=== PATIENT | male | born 1975 | race Caucasian/White ===

== ENCOUNTER 2018-06-25 16:27 | Outpatient (REF) | payer OTHER, SELFPAY ==
[2018-06-25 22:29] LABS: Mean Corp. HGB Concentration 34.2 g/dL (32.0-36.0); Mean Corpuscular Hemoglobin 29.5 pg (27.0-33.0); Mean Corpuscular Volume 86.4 fL (80-95); Mean Platelet Volume 11.1 fL (8.0-11.0); Platelet Count 170 x1000/uL (130-400); White Blood Cell Count 6.86 k/cumm (4.4-10.8)
[2018-06-25 22:44] LABS: Iron 57 ug/dL (50-175); Total Iron Binding Capacity 241 ug/dL (250-450); Transferrin Sat 24 % (20-55)
[2018-06-25 22:55] LABS: Ferritin 207 ng/mL (8-388); TSH (W/Ref FT4) 1.75 uIU/mL (0.358-3.74)
== END 2018-06-25 16:47 ==
LOC: NCHCN 16:27
PROVIDERS: PCP Nurse Practitioner Family; Visit Provider Nurse Practitioner Family
DX: R53.83 Other fatigue (principal); R06.83 Snoring; M79.674 Pain in right toe(s)
CPT/HCPCS: 85027; 82728; 83540; 83550; 84443

== ENCOUNTER 2018-07-14 07:07 | Emergency (ER) | payer SELFPAY ==
--- NOTE | 2018-07-14 07:10 | W.ED.GENAD ---
Discharge Plan Disposition Patient Disposition: HOME Condition: Stable Discharge Details Chief Complaint: Chest/Rib Clinical Impression: Shingles, Animal bite Primary Care Provider: Anel Campos ED Provider: Dav Penaloza Home Meds and New Rx's Prescriptions: New acyclovir 800 mg tablet 800 mg PO Q4H 7 Days Qty: 42 RF: 0 lidocaine 5 % adhesive patch,medicated 1 patch TP DAILY Qty: 15 RF: 0 Continued metformin 500 MG tablet 850 mg PO BID RF: 0 losartan 25 MG tablet 25 mg PO DAILY RF: 0 aspirin [Aspir-81] 81 MG tablet,delayed release (DR/EC) 81 mg PO DAILY RF: 0 simvastatin 10 MG tablet 10 mg PO HS RF: 0 Discharge Instructions Instructions: Shingles (ED) Additional Instructions: you are being treated for shingles you can take 1000mg tylenol and 600mg ibuprofen every 6 hours for pain as needed you should be contacted with a time to go to the infusion room on 07/17, 07/21, 07/28 for additional rabies vaccines if you have severe worsening pain or difficulty breathing return to the emergency department Medical Decision Making 43 yo male states last week he wsa bit on the hands by a weasel. Has no pain, swelling or evidence of bite on exam. Came in today because for 2 days or so has had pain in left chest and a rash. The rash seems to fit with shingles, is in t5 dermatome, maculopapular with some vescules, doesn't cross midline. HAs no pain elsewhere and pain is localized to this area. Do not feel workup for acs, pe, dissection indicated since his pain is localized to the shingles area. Will d/c home. Will give rabies immunoglobulin and start rabies vaccnie as well for the weasel bite, return precautions given. Has no clinical findings on hx or exam to suggest clinical rabies Differential Diagnosis shingles, rabies prophylaxis HPI General Mode of arrival: ambulatory. Date/Time Provider Initiated Documentation: 07/14/18 07:10. Limitations to Documentation: no limitations. Information obtained by: patient. History of Present Illness 43 year old M presents to the emergency department with the chief complaint of left sided chest rash, described as moderate, Quality is described as burning, and is localized to the chest. Patient reports no radiation. Patient started experiencing this day(s) (2) and it has been constant. No relieving factors improve symptom(s), No exacerbating factors reported . Patient notes no other symptoms.. Patient did receive the following treatments prior to arrival, none Related Data Home Medications Medication Instructions Recorded Confirmed aspirin [Aspir-81] 81 mg PO DAILY 07/07/16 07/14/18 losartan 25 mg PO DAILY 07/07/16 07/14/18 metformin 850 mg PO BID 07/07/16 07/14/18 simvastatin 10 mg PO HS 07/07/16 07/14/18 acyclovir 800 mg PO Q4H 7 Days #42 tab 07/14/18 lidocaine 1 patch TP DAILY #15 each 07/14/18 Previous Rx's Medication Instructions Recorded acyclovir 800 mg PO Q4H 7 Days #42 tab 07/14/18 lidocaine 1 patch TP DAILY #15 each 07/14/18 Allergies Allergy/AdvReac Type Severity Reaction Status Date / Time No Known Allergies Allergy Unverified 07/14/18 07:17 Review of Systems Review of Systems All systems reviewed & are unremarkable except as noted in HPI and below Constitutional Denies chills, Denies fever(s) and Denies weakness ENT Denies change in voice Cardiovascular Denies dyspnea Respiratory Denies dyspnea Gastrointestinal Denies abdominal pain, Denies nausea and Denies vomiting Genitourinary Denies dysuria Musculoskeletal Denies joint swelling Neurologic Denies weakness Endocrine Denies heat intolerance Allergic/Immunologic Denies urticaria [facility] Social History Smoking/Tobacco Use Status: Never Exam Const General: no acute distress Orientation: alert HENMT Head: normal to inspection Ears: external ears normal General nose exam: external nose normal Mouth: moist mucous membranes Eyes General: appearance normal, both eyes and all related structures Neck Neck: normal visual inspection Resp Effort & Inspection: normal respiratory effort and able to speak in complete sentences Cardio Rate: regular rate Skin General skin exam: elasticity normal Neuro General: alert and oriented x3 Extrem General: normal to inspection Psych Mental Status: mental status grossly normal
[2018-07-14 07:12] VITALS: BP 145/82; PULSE 91; RESP 12; TEMP 37; O2SAT 98
--- NOTE | 2018-07-14 07:29 | ED.GENADUL_ITS ---
Discharge Plan Disposition Patient Disposition: HOME Condition: Stable Discharge Details Chief Complaint: Chest/Rib Clinical Impression: Shingles, Animal bite Primary Care Provider: Anel Campos ED Provider: Dav Penaloza Home Meds and New Rx's Prescriptions: New acyclovir 800 mg tablet 800 mg PO Q4H 7 Days Qty: 42 RF: 0 lidocaine 5 % adhesive patch,medicated 1 patch TP DAILY Qty: 15 RF: 0 Continued metformin 500 MG tablet 850 mg PO BID RF: 0 losartan 25 MG tablet 25 mg PO DAILY RF: 0 aspirin [Aspir-81] 81 MG tablet,delayed release (DR/EC) 81 mg PO DAILY RF: 0 simvastatin 10 MG tablet 10 mg PO HS RF: 0 Discharge Instructions Instructions: Shingles (ED) Additional Instructions: you are being treated for shingles you can take 1000mg tylenol and 600mg ibuprofen every 6 hours for pain as needed you should be contacted with a time to go to the infusion room on 07/17, 07/21, 07/28 for additional rabies vaccines if you have severe worsening pain or difficulty breathing return to the emergency department Medical Decision Making 43 yo male states last week he wsa bit on the hands by a weasel. Has no pain, swelling or evidence of bite on exam. Came in today because for 2 days or so has had pain in left chest and a rash. The rash seems to fit with shingles, is in t5 dermatome, maculopapular with some vescules, doesn't cross midline. HAs no pain elsewhere and pain is localized to this area. Do not feel workup for acs, pe, dissection indicated since his pain is localized to the shingles area. Will d/c home. Will give rabies immunoglobulin and start rabies vaccnie as well for the weasel bite, return precautions given. Has no clinical findings on hx or exam to suggest clinical rabies Differential Diagnosis shingles, rabies prophylaxis HPI General Mode of arrival: ambulatory . Date/Time Provider Initiated Documentation: 07/14/18 07:10 . Limitations to Documentation: no limitations . Information obtained by: patient . History of Present Illness 43 year old M presents to the emergency department with the chief complaint of left sided chest rash, described as moderate, Quality is described as burning, and is localized to the chest. Patient reports no radiation. Patient started experiencing this day(s) (2) and it has been constant. No relieving factors improve symptom(s), No exacerbating factors reported . Patient notes no other symptoms.. Patient did receive the following treatments prior to arrival, none Related Data Home Medications Medication Instructions Recorded Confirmed aspirin [Aspir-81] 81 mg PO DAILY 07/07/16 07/14/18 losartan 25 mg PO DAILY 07/07/16 07/14/18 metformin 850 mg PO BID 07/07/16 07/14/18 simvastatin 10 mg PO HS 07/07/16 07/14/18 acyclovir 800 mg PO Q4H 7 Days #42 tab 07/14/18 lidocaine 1 patch TP DAILY #15 each 07/14/18 Previous Rx's Medication Instructions Recorded acyclovir 800 mg PO Q4H 7 Days #42 tab 07/14/18 lidocaine 1 patch TP DAILY #15 each 07/14/18 Allergies Allergy/AdvReac Type Severity Reaction Status Date / Time No Known Allergies Allergy Unverified 07/14/18 07:17 Review of Systems Review of Systems All systems reviewed & are unremarkable except as noted in HPI and below Constitutional Denies chills, Denies fever(s) and Denies weakness ENT Denies change in voice Cardiovascular Denies dyspnea Respiratory Denies dyspnea Gastrointestinal Denies abdominal pain, Denies nausea and Denies vomiting Genitourinary Denies dysuria Musculoskeletal Denies joint swelling Neurologic Denies weakness Endocrine Denies heat intolerance Allergic/Immunologic Denies urticaria [facility] Social History Smoking/Tobacco Use Status: Never Exam Const General: no acute distress Orientation: alert HENMT Head: normal to inspection Ears: external ears normal General nose exam: external nose normal Mouth: moist mucous membranes Eyes General: appearance normal, both eyes and all related structures Neck Neck: normal visual inspection Resp Effort & Inspection: normal respiratory effort and able to speak in complete sentences Cardio Rate: regular rate Skin General skin exam: elasticity normal Neuro General: alert and oriented x3 Extrem General: normal to inspection Psych Mental Status: mental status grossly normal
[2018-07-14] MEDS: Rabies Immune Globulin 300 UNIT/ML VIAL 1800 UNIT IM (07:45)
--- NOTE | 2018-07-14 07:50 | NUR.NOTE ---
out-patient order sent to infusion room for future rabies vaccine. Nursing Note:
--- NOTE | 2018-07-14 08:09 | NUR.NOTE ---
animal bite reported to Glory Bolanos [facility] Officer. [facility] [phone].Nursing Note:
== END 2018-07-14 08:05 | disposition home or self-care (01) ==
PROVIDERS: Emergency Provider Emergency Medicine; PCP Nurse Practitioner Family
DX: B02.9 Zoster without complications (principal); S61.451A Open bite of right hand, initial encounter; S61.452A Open bite of left hand, initial encounter; W53.81XA Bitten by other rodent, initial encounter; E11.9 Type 2 diabetes mellitus without complications; Z79.84 Long term (current) use of oral hypoglycemic drugs
CPT/HCPCS: 90471; 96372; 99284; 90675

== ENCOUNTER 2018-07-28 00:30 | Outpatient (RCR) | payer SELFPAY | END 2018-08-09 23:59 | disposition home or self-care (01) | LOC: INF 00:30 | PROVIDERS: PCP Nurse Practitioner Family; Visit Provider Internal Medicine | DX: Z20.3 Contact with and (suspected) exposure to rabies (principal) | CPT/HCPCS: 96372; 90675 ==

== ENCOUNTER 2018-07-30 17:08 | Outpatient (REF) | payer SELFPAY ==
[2018-07-30 22:11] LABS: HCT 38.8 % (40.0-50.0); Mean Corp. HGB Concentration 33.5 g/dL (32.0-36.0); Mean Corpuscular Hemoglobin 29.5 pg (27.0-33.0); Mean Platelet Volume 11.4 fL (8.0-11.0); Platelet Count 181 x1000/uL (130-400); RBC 4.41 m/cumm (4.50-6.00); RBC Distribution Width 13.7 % (11.8-14.1); White Blood Cell Count 7.36 k/cumm (4.4-10.8)
== END 2018-07-30 17:28 ==
LOC: NCHCN 17:08
PROVIDERS: PCP Nurse Practitioner Family; Visit Provider Nurse Practitioner Family
DX: D64.9 Anemia, unspecified (principal); R53.83 Other fatigue; E78.5 Hyperlipidemia, unspecified; E11.9 Type 2 diabetes mellitus without complications; R06.83 Snoring; M54.5 Low back pain
CPT/HCPCS: 85027

== ENCOUNTER 2018-11-05 17:41 | Outpatient (REF) | payer SELFPAY ==
[2018-11-05 21:08] LABS: HGB 12.5 g/dL (13.5-17.5); Mean Corp. HGB Concentration 33.8 g/dL (32.0-36.0); Mean Corpuscular Hemoglobin 28.9 pg (27.0-33.0); Mean Corpuscular Volume 85.6 fL (80-95); Mean Platelet Volume 11.3 fL (8.0-11.0); Platelet Count 160 x1000/uL (130-400); RBC 4.32 m/cumm (4.50-6.00); RBC Distribution Width 12.9 % (11.8-14.1); White Blood Cell Count 5.89 k/cumm (4.4-10.8)
[2018-11-05 21:19] LABS: ALT 53 U/L (12-78); AST 30 U/L (15-37); Albumin 4.1 g/dL (3.4-5.0); Alkaline Phosphatase 67 U/L (46-116); Anion Gap 10.5 mmol/L (3-11); BUN 14 mg/dL (7-18); Bilirubin, Total 0.4 mg/dL (0.2-1.0); CO2 27.5 mmol/L (21.0-32.0); CREATININE 0.81 mg/dL (0.70-1.30); Calcium 8.4 mg/dL (8.5-10.1); Chloride 101 mmol/L (98-107); Glucose 120 mg/dL (70-100); Potassium 3.6 mmol/L (3.5-5.1); Sodium 139 mmol/L (136-145); Total Protein 6.8 g/dL (6.4-8.2)
== END 2018-11-05 18:01 ==
LOC: NCHCN 17:41
PROVIDERS: PCP Nurse Practitioner Family; Visit Provider Nurse Practitioner Family
DX: D64.9 Anemia, unspecified; R53.83 Other fatigue; M54.5 Low back pain; R06.83 Snoring; E78.5 Hyperlipidemia, unspecified; E11.9 Type 2 diabetes mellitus without complications; R07.9 Chest pain, unspecified
CPT/HCPCS: 80053; 85027

== ENCOUNTER 2019-04-25 06:41 | Emergency (ER) | payer SELFPAY ==
[2019-04-25 06:44] VITALS: BP 143/86; PULSE 102; RESP 16; TEMP 36.8; O2SAT 97
[2019-04-25 06:48] VITALS: RESP 16
--- NOTE | 2019-04-25 07:06 | ED.GENADUL_ITS ---
Discharge Plan Disposition Patient Disposition: HOME Condition: Good Discharge Details Chief Complaint: Vascular Clinical Impression: Right wrist pain Primary Care Provider: Anel Campos ED Provider: Paramjit Palacios Meds and New Rx's Prescriptions: New ibuprofen 600 mg tablet 600 mg PO TID Qty: 12 RF: 0 Continued metformin 500 MG tablet 1,000 mg PO BID RF: 0 losartan 25 MG tablet 25 mg PO DAILY RF: 0 aspirin [Aspir-81] 81 MG tablet,delayed release (DR/EC) 81 mg PO DAILY RF: 0 simvastatin 10 MG tablet 10 mg PO HS RF: 0 Discharge Instructions Additional Instructions: Wear splint. Ibuprofen as directed. Ice on and off. Follow-up with primary care next week for reevaluation. Return to emergency department for fever, increased pain/swelling, redness. Stand Alone Forms: Work Release Referrals: Anel Campos [Primary Care Provider] - Medical Decision Making Patient here with pain in the ulnar aspect of the right wrist. No evidence of joint effusion, erythema. Essentially normal range of motion. Doubt infection. No trauma so no reason for fracture or dislocation. No involvement of carpal tunnel distribution. Appears to be more ulnar nerve related. Does not have pain in the elbow. He is neurovascularly intact. We will place him in a universal wrist splint and start short-term ibuprofen. Follow-up with primary care next week for reevaluation. Return to ED for fever, swelling, redness, other concerns or problems. HPI General Mode of arrival: ambulatory . Date/Time Provider Initiated Documentation: 04/25/19 07:04 . Limitations to Documentation: no limitations . Information obtained by: patient . HPI Narrative: Patient presents to ED with right ulnar wrist pain. He has had a little discomfort over the last couple of days. This morning significantly worse with pain down into the little finger. There is no trauma. He is right-hand dominant. 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 He has not taken anything for the pain. He denies numbness or weakness in the hand. He has no elbow discomfort. Related Data Home Medications Medication Instructions Recorded Confirmed aspirin [Aspir-81] 81 mg PO DAILY 07/07/16 04/25/19 losartan 25 mg PO DAILY 07/07/16 04/25/19 metformin 1,000 mg PO BID 07/07/16 04/25/19 simvastatin 10 mg PO HS 07/07/16 04/25/19 ibuprofen 600 mg PO TID #12 tab 04/25/19 Previous Rx's Medication Instructions Recorded ibuprofen 600 mg PO TID #12 tab 04/25/19 Allergies Allergy/AdvReac Type Severity Reaction Status Date / Time No Known Allergies Allergy Unverified 04/25/19 06:47 General Stated Complaint: Vascular POLLY: 4 Review of Systems Constitutional Constitutional: Denies weakness Musculoskeletal Musculoskeletal: Denies deformity, Denies joint swelling, Denies limited range of motion, Denies numbness and Denies tingling Integumentary/Breasts Skin/Breast: Denies erythema and Denies rash Neurologic Neurologic: Denies numbness, Denies tingling, Denies paresthesias and Denies weakness [facility], [facility] Medical History Diabetes mellitus (Chronic) HTN (hypertension) (Chronic) Hypercholesterolemia (Chronic) Social History Smoking/Tobacco Use Status: Never Alcohol Intake: never Drug use: Never Substance use type: does not use Do you feel safe at home: Yes Do you feel safe in your relationship?: Yes Exam Const General: cooperative, comfortable and no acute distress Orientation: alert and oriented x3 Skin General skin exam: no erythema Rashes: no rashes Extrem Other: Right wrist without swelling or redness. Essentially normal range of motion both flexion and extension as well as ulnar and radial deviation. Mild tenderness dorsal ulnar aspect. Good strength and sensation in the hand. No tenderness over the ulnar nerve in the elbow. Normal pulses. Course Vital Signs Vital signs: Vital Signs Temperature 98.2 F 04/25/19 06:44 Pulse 102 H 04/25/19 06:44 Respiratory Rate 16 04/25/19 06:44 Blood Pressure 143/86 H 04/25/19 06:44 Pulse Oximetry 97 04/25/19 06:44 Temperature 98.2 F 04/25/19 06:44 Temperature Source Skin 04/25/19 06:44 Pulse 102 H 04/25/19 06:44 Respiratory Rate 16 04/25/19 06:48 Respiratory Effort 04/25/19 06:48 Respiratory Depth Normal 04/25/19 06:48 Respiratory Pattern Normal 04/25/19 06:48 Blood Pressure 143/86 H 04/25/19 06:44 Blood Pressure Position Sitting 04/25/19 06:44 Pulse Oximetry 97 04/25/19 06:44 Oxygen Delivery Method Room Air 04/25/19 06:44 Oxygen Flow Rate 0 04/25/19 06:44 Pain Level 10 04/25/19 06:44 Comment 04/25/19 06:44
[2019-04-25] MEDS: Ibuprofen 600 MG TAB PO (07:14)
== END 2019-04-25 07:27 | disposition home or self-care (01) ==
PROVIDERS: Emergency Provider Emergency Medicine; PCP Nurse Practitioner Family
DX: M25.531 Pain in right wrist (principal)
CPT/HCPCS: 99282; L3908

== ENCOUNTER → 2020-06-19 16:08 | Outpatient (REF) | payer SELFPAY ==
[2020-06-19 20:57] LABS: Abs Immature Grans 0.07 10^3/uL (0.0-0.06); Absolute Basophil Count 0.03 10^3/uL (0.0-0.2); Absolute Eosinophil Count 0.05 10^3/uL (0.0-0.7); Absolute Lymphocyte Count 2.67 10^3/uL (1.2-3.4); Absolute Monocyte Count 0.37 10^3/uL (0.1-0.8); Absolute Neutrophil Count 4.43 10^3/uL (1.2-6.7); Basophils % 0.4; Eosinophils % 0.7; HCT 43.8 % (40.0-50.0); HGB 14.6 g/dL (13.5-17.5); Immature Grans % 0.9; MCH 28.7 pg (27.0-33.0); MCHC 33.3 % (32.0-36.0); MCV 86.2 fL (80-95); MPV 11.2 fL (8.0-11.0); Monocytes % 4.9; Neutrophils % 58.1; Nucleated RBC 0 %; Platelet Count 191 10^3/uL (130-400); RBC 5.08 10^6/uL (4.36-5.78); RDW 12.8 % (11.8-14.1); RDW-SD 39.8 fL; WBC 7.62 10^3/uL (4.4-10.8)
[2020-06-19 22:42] LABS: ALT 33 U/L (16-63); AST 17 U/L (15-37); Albumin 4.9 g/dL (3.4-5.0); Alkaline Phosphatase 75 U/L (46-116); Anion Gap 10.5 mmol/L (3-11); BUN 14 mg/dL (7-18); Bilirubin, Total 0.4 mg/dL (0.2-1.0); CO2 28.5 mmol/L (21.0-32.0); CREATININE 0.88 mg/dL (0.70-1.30); Calcium 9.1 mg/dL (8.5-10.1); Chloride 99 mmol/L (98-107); Folate 11.7 ng/mL (8.6-20.0); Glucose 162 mg/dL (74-106); Potassium 3.8 mmol/L (3.5-5.1); Sodium 138 mmol/L (136-145); Total Protein 7.7 g/dL (6.4-8.2); Vitamin B12 186 pg/mL (193-986)
[2020-06-19 23:36] LABS: Iron 68 ug/dL (65-175); Total Iron Binding Capacity 275 ug/dL (250-450); Transferrin Sat 25 % (20-55)
[2020-06-22 10:47] LABS: HIV-1/2 Ag & Ab Screen Negative (Negative)
[2020-06-22 11:11] LABS: Hepatitis C Ab w Rflx HCV PCR Negative (Negative)
== END ==
LOC: NCHCN 16:08
PROVIDERS: PCP Nurse Practitioner Family; Visit Provider Nurse Practitioner Family
DX: D64.9 Anemia, unspecified (principal); R07.89 Other chest pain; E78.5 Hyperlipidemia, unspecified; E11.9 Type 2 diabetes mellitus without complications; R53.83 Other fatigue; M54.5 Low back pain; Z11.4 Encounter for screening for human immunodeficiency virus [HIV]; Z11.59 Encounter for screening for other viral diseases
CPT/HCPCS: 80053; 86803; 87389; 82607; 82746; 83540; 83550; 85025

== ENCOUNTER 2020-06-23 20:59 | Outpatient (REF) | payer SELFPAY ==
[2020-06-25 16:37] LABS: COVID-19 RT-PCR UVMMC Result Negative (Negative)
== END 2020-06-23 21:19 ==
LOC: NCHCN 20:59
PROVIDERS: PCP Nurse Practitioner Family; Visit Provider Nurse Practitioner Family
DX: Z20.828 Contact with and (suspected) exposure to other viral communicable diseases (principal)
CPT/HCPCS: U0003

== ENCOUNTER 2020-07-08 13:46 | Emergency (ER) | payer OTHER, SELFPAY ==
[2020-07-08] VITALS (37 sets, daily range): BP systolic 114–147; BP diastolic 69–90; PULSE 70–92; RESP 12–28; TEMP 36.8–37; O2SAT 93–100
--- NOTE | 2020-07-08 13:45 | RT.EKG_ITS ---
APPROVED REPORT Exam: Resting ECG Patient Location: E HR:84 bpm ECG Measurements Heart Rate 84 AXIS WY 180 P 30 QRSd 96 QRS 41 QT 348 T 5 QTc 411 Conclusion Sinus rhythm...normal P axis, V-rate 60- 99 I have reviewed and interpreted ECG and agree with software generated interpretation.
--- NOTE | 2020-07-08 13:57 | ED.GENADUL_ITS ---
Discharge Plan Disposition Patient Disposition: HOME Condition: Improving Discharge Details Clinical Impression: Atypical chest pain, Chronic chest pain, Chest wall pain Primary Care Provider: Anel Campos ED Provider: Ida Garza Home Meds and New Rx's Prescriptions: Continued metformin 500 MG tablet 1,000 mg PO BID RF: 0 losartan 25 MG tablet 25 mg PO DAILY RF: 0 aspirin [Aspir-81] 81 MG tablet,delayed release (DR/EC) 81 mg PO DAILY RF: 0 simvastatin 10 MG tablet 10 mg PO HS RF: 0 glipizide 5 mg tablet extended release 24hr 5 mg PO DAILY RF: 0 cyanocobalamin (vitamin B-12) [Vitamin B-12] 1,000 mcg Tablet 1,000 mcg PO DAILY RF: 0 ibuprofen 600 mg tablet 600 mg PO TID Qty: 12 RF: 0 Discharge Instructions Instructions: Chronic Pain (ED), Chest Wall Pain (ED) Additional Instructions: Alternate tylenol and motrin as needed and directed for pain. You can use [id number] Lidoderm patches as needed and directed for pain. You will receive a call from the radiology department regarding scheduling for your outpatient stress test. Follow-up with your primary care doctor in 1 week. Return to the emergency department with any worsening or new concerning symptoms. Discharge Data Discharge Date/Time-TO BE ENTERED AT DEPARTURE: 07/08/20 18:10 Discharge Physician: Ida Garza Medical Decision Making 1400 -- 45yo M w/ a h/o diabetes, htn, hld presents with intermittent sharp substernal chest pain for the past week. No other associated symptoms. Started glipizide last week for elevated hemoglobin A1c per PCP. EKG notes a rate of 84, sinus with no acute ST ischemic findings. He appears somewhat anxious. He has mild substernal tenderness to palpation. He drove himself to the ED. Differential diagnosis includes anxiety, medication reaction, GI etiology, muscular. Considering chronic nature of pain without exertional component, does not appear consistent with cardiac etiology. History and presentation not consistent with PE intersection. Considering patient's age and history, will check screening labs, chest x-ray and give a dose of Toradol and reassess. 1530 -- Pt reassessed - pain now 6/10 - he appears anxious. He now has a ride home. Will give a dose of ativan and pepcid IV and GI cocktail. 1700 -- repeat troponin negative. Repeat EKG notes rate of 76, sinus, benign early repol and no STEMI, no acute change from previous. Review of glipizide adverse reactions include nervousness, nausea, dizziness, etc., but does not indicate chest pain. Patient reassessed and he feels much better and is requesting to go home. Heart score low risk at 1. Discussed with patient that chronic nature of pain in addition to reproducible component makes a cardiac etiology less likely, however with patient's history of diabetes, will refer for outpatient stress test. An order for exercise treadmill stress test placed. Advised to follow up with the primary care doctor for re-evaluation. Usual and customary return precautions given prior to discharge. Medical Records Medical records reviewed: Yes I reviewed the patient's medical records. Imaging Data Radiologic Study: Radiologist's impression: XR CHEST 2V PA LATERAL CLINICAL HISTORY: chest pain, r/o acute disease TECHNIQUE: 2D digital imaging was performed. COMPARISON: CR CHEST 2 VIEWS PA,LAT from 07/07/2016 FINDINGS: The heart is not enlarged. The lungs are clear and well expanded. No pleural effusion seen. Mediastinal contours appear intact. IMPRESSION: Normal chest. Lab Data Lab results reviewed: Yes I reviewed the patient's lab results. Labs: Laboratory Tests Range/Units 07/08/20 07/08/20 07/08/20 13:55 13:55 13:55 WBC (4.4-10.8) 10^3/uL 9.87 RBC (4.36-5.78) 10^6/uL 4.81 Hgb (13.5-17.5) g/dL 14.0 Hct (40.0-50.0) % 42.4 MCV (80-95) fL 88.1 MCH (27.0-33.0) pg 29.1 MCHC (32.0-36.0) % 33.0 RDW (11.8-14.1) % 12.6 Plt Count (130-400) 10^3/uL 181 MPV (8.0-11.0) fL 10.4 Immature Gran % 0.7 Neutrophils % 58.3 Lymphocytes % 35.2 Monocytes % 4.9 Eosinophils % 0.6 Basophils % 0.3 Nucleated RBC % % 0 Absolute Neutrophils (1.2-6.7) 10^3/uL 5.76 Absolute Lymphocytes (1.2-3.4) 10^3/uL 3.47 H Absolute Monocytes (0.1-0.8) 10^3/uL 0.48 Absolute Eosinophils (0.0-0.7) 10^3/uL 0.06 Absolute Basophils (0.0-0.2) 10^3/uL 0.03 PT (9.3-11.0) sec 10.2 INR (0.9-1.1) 1.0 APTT (21.0-27.5) sec 24.8 D-Dimer (<500) ng/mlFEU Sodium (136-145) mmol/L 139 Potassium (3.5-5.1) mmol/L 3.6 Chloride (98-107) mmol/L 102 Carbon Dioxide (21.0-32.0) mmol/L 27.9 Anion Gap (3-11) mmol/L 9.1 BUN (7-18) mg/dL 16 Creatinine (0.70-1.30) mg/dL 0.93 Estimated GFR/1.73 m2 (mL/min/1.73m2) >= 60.00 Glucose (74-106) mg/dL 105 Calcium (8.5-10.1) mg/dL 8.9 Magnesium (1.8-2.4) mg/dL 1.7 L Total Bilirubin (0.2-1.0) mg/dL 0.4 AST (15-37) U/L 19 ALT (16-63) U/L 44 Alkaline Phosphatase (46-116) U/L 81 Troponin I (<0.06) ng/mL < 0.05 Total Protein (6.4-8.2) g/dL 8.0 Albumin (3.4-5.0) g/dL 4.8 Range/Units 07/08/20 07/08/20 13:55 16:55 WBC (4.4-10.8) 10^3/uL RBC (4.36-5.78) 10^6/uL Hgb (13.5-17.5) g/dL Hct (40.0-50.0) % MCV (80-95) fL MCH (27.0-33.0) pg MCHC (32.0-36.0) % RDW (11.8-14.1) % Plt Count (130-400) 10^3/uL MPV (8.0-11.0) fL Immature Gran % Neutrophils % Lymphocytes % Monocytes % Eosinophils % Basophils % Nucleated RBC % % Absolute Neutrophils (1.2-6.7) 10^3/uL Absolute Lymphocytes (1.2-3.4) 10^3/uL Absolute Monocytes (0.1-0.8) 10^3/uL Absolute Eosinophils (0.0-0.7) 10^3/uL Absolute Basophils (0.0-0.2) 10^3/uL PT (9.3-11.0) sec INR (0.9-1.1) APTT (21.0-27.5) sec D-Dimer (<500) ng/mlFEU 163 Sodium (136-145) mmol/L Potassium (3.5-5.1) mmol/L Chloride (98-107) mmol/L Carbon Dioxide (21.0-32.0) mmol/L Anion Gap (3-11) mmol/L BUN (7-18) mg/dL Creatinine (0.70-1.30) mg/dL Estimated GFR/1.73 m2 (mL/min/1.73m2) Glucose (74-106) mg/dL Calcium (8.5-10.1) mg/dL Magnesium (1.8-2.4) mg/dL Total Bilirubin (0.2-1.0) mg/dL AST (15-37) U/L ALT (16-63) U/L Alkaline Phosphatase (46-116) U/L Troponin I (<0.06) ng/mL < 0.05 Total Protein (6.4-8.2) g/dL Albumin (3.4-5.0) g/dL ECG Data Attestation: I personally reviewed and interpreted this ECG (s) as follows: Interpretation: #1 -- rate of 84, sinus, no acute ST elevation or depression. GA 180. QRS 96. QTc 411. #2 -- rate of 76, sinus, possible benign early repol. No STEMI. GA 201. QRS 96. QTc 414. #3 -- rate of 78, sinus, possible benign early repol. No STEMI. GA 195. QRS 96. QTc 410. HPI General Mode of arrival: ambulatory . Date/Time Provider Initiated Documentation: 07/08/20 13:54 . Limitations to Documentation: no limitations . Information obtained by: patient . HPI Narrative: Patient is a 45-year-old male with history of diabetes, hypertension, hyperlipidemia who presents for chest pain for the past week. Patient describes pain as intermittent, sharp, substernal without radiation. He denies any aggravating or alleviating factors. He states the pain is 10/10 at its worst and is currently 2/10. He denies any known injury, fever, cough, shortness of breath, nausea, vomiting, dizziness, a bdominal pain. He has not taken any medication for symptoms. He denies any significant anxiety or stressors. He denies any similar history in the past. Related Data Home Medications Medication Instructions Recorded Confirmed aspirin [Aspir-81] 81 mg PO DAILY 07/07/16 07/08/20 losartan 25 mg PO DAILY 07/07/16 07/08/20 metformin 1,000 mg PO BID 07/07/16 07/08/20 simvastatin 10 mg PO HS 07/07/16 07/08/20 ibuprofen 600 mg PO TID #12 tab 04/25/19 07/08/20 cyanocobalamin (vitamin B-12) 1,000 mcg PO DAILY 07/08/20 07/08/20 [Vitamin B-12] glipizide 5 mg PO DAILY 07/08/20 07/08/20 Previous Rx's Medication Instructions Recorded ibuprofen 600 mg PO TID #12 tab 04/25/19 Allergies Allergy/AdvReac Type Severity Reaction Status Date / Time No Known Allergies Allergy Unverified 07/08/20 13:54 General Stated Complaint: Chest Pain POLLY: 2 Review of Systems All systems reviewed & are unremarkable except as noted in HPI and below Constitutional Constitutional: Reports as per HPI, Denies chills and Denies fever(s) Eyes Eyes: Denies blurry vision ENT Ears, Nose, Mouth, and Throat: Denies dizziness, Denies sore throat and Denies throat swelling Cardiovascular Cardiovascular: Reports chest pain and Denies dyspnea Respiratory Respiratory: Denies cough and Denies dyspnea Gastrointestinal Gastrointestinal: Denies abdominal pain, Denies diarrhea and Denies vomiting Genitourinary Genitourinary: Denies hematuria and Denies dysuria Musculoskeletal Musculoskeletal: Denies back pain and Denies numbness Integumentary/Breasts Skin/Breast: Denies lesions and Denies rash Neurologic Neurologic: Denies dizziness, Denies localized weakness and Denies numbness Allergic/Immunologic Allergic/Immunologic: Denies throat swelling [facility] Medical History (Updated 07/08/20 @ 17:51 by Ida Garza DO) Diabetes mellitus HTN (hypertension) Hypercholesterolemia Social History Smoking/Tobacco Use Status: Never Smoking risk assessment performed?: Yes Alcohol Intake: never Drug use: Never Substance use type: does not use Do you feel safe at home: Yes Do you feel safe in your relationship?: Yes Exam Const General: cooperative, healthy appearing, no acute distress and anxious HENMT Head: normal to inspection Face and sinus: normal facial exam Eyes General: appearance normal, both eyes and all related structures EOM: EOM intact bilaterally Neck Neck: normal visual inspection and No submandibular swelling Lymphatic: no lymphadenopathy noted Chest Chest: normal inspection of the chest Chest/axillae images: 1. Mild substernal chest tenderness to palpation. No erythema, edema, ecchymosis, crepitus. Resp Effort & Inspection: normal respiratory effort and able to speak in complete sentences Auscultation: clear to auscultation bilaterally Cardio Rate: regular rate Rhythm: regular rhythm GI Inspection: normal to inspection Palpation: soft, not firm, not rigid and nontender Auscultation: normal bowel sounds Male General Exam: Yes normal external exam Back/Spine/Pelvis Thoracic/Lumbar Spine: thoracic and lumbar spine normal to inspection Pelvis: no pain with anterior-posterior compression Skin General skin exam: no rashes or lesions noted Neuro General: patient alert, patient awake and patient oriented x3 Cognition: normal cognition Speech: speech normal Motor: muscle tone normal throughout Sensory Exam: no sensory deficits noted Extrem General: normal to inspection, full ROM, capillary refill normal, no calf tenderness bilaterally and no edema Psych Appearance: grossly normal Mental Status: mental status grossly normal Speech and Movement: speech and movement normal Affect: normal affect Course Vital Signs Vital signs: Vital Signs Temperature 98.2 F 07/08/20 13:49 Pulse 84 07/08/20 13:49 Respiratory Rate 20 07/08/20 13:49 Blood Pressure 147/89 H 07/08/20 13:49 Pulse Oximetry 100 07/08/20 13:49 Temperature 98.2 F 07/08/20 13:49 Temperature Source Temporal Artery Scan 07/08/20 13:49 Pulse 84 07/08/20 13:49 Respiratory Rate 20 07/08/20 13:49 Respiratory Effort Non-Labored 07/08/20 13:52 Blood Pressure 147/89 H 07/08/20 13:49 Blood Pressure Position Supine 07/08/20 13:49 Pulse Oximetry 100 07/08/20 13:49 Oxygen Delivery Method Room Air 07/08/20 13:49 Oxygen Flow Rate 0 07/08/20 13:49 Pain Level 5 07/08/20 13:49
[2020-07-08 14:07] LABS: Abs Immature Grans 0.07 10^3/uL (0.0-0.06); Absolute Basophil Count 0.03 10^3/uL (0.0-0.2); Absolute Eosinophil Count 0.06 10^3/uL (0.0-0.7); Absolute Lymphocyte Count 3.47 10^3/uL (1.2-3.4); Absolute Monocyte Count 0.48 10^3/uL (0.1-0.8); Absolute Neutrophil Count 5.76 10^3/uL (1.2-6.7); Basophils % 0.3; Eosinophils % 0.6; HCT 42.4 % (40.0-50.0); Immature Grans % 0.7; Lymphocytes % 35.2; MCH 29.1 pg (27.0-33.0); MCV 88.1 fL (80-95); MPV 10.4 fL (8.0-11.0); Monocytes % 4.9; Neutrophils % 58.3; Nucleated RBC 0 %; Platelet Count 181 10^3/uL (130-400); RBC 4.81 10^6/uL (4.36-5.78); RDW 12.6 % (11.8-14.1); WBC 9.87 10^3/uL (4.4-10.8)
[2020-07-08 14:22] LABS: PTT Activated 24.8 sec (21.0-27.5); Prothrombin Time 10.2 sec (9.3-11.0)
[2020-07-08 14:23] LABS: ALT 44 U/L (16-63); AST 19 U/L (15-37); Albumin 4.8 g/dL (3.4-5.0); Alkaline Phosphatase 81 U/L (46-116); Anion Gap 9.1 mmol/L (3-11); BUN 16 mg/dL (7-18); Bilirubin, Total 0.4 mg/dL (0.2-1.0); CO2 27.9 mmol/L (21.0-32.0); CREATININE 0.93 mg/dL (0.70-1.30); Calcium 8.9 mg/dL (8.5-10.1); Chloride 102 mmol/L (98-107); Glucose 105 mg/dL (74-106); Magnesium 1.7 mg/dL (1.8-2.4); Potassium 3.6 mmol/L (3.5-5.1); Sodium 139 mmol/L (136-145)
[2020-07-08 14:24] LABS: Troponin I < 0.05 ng/mL (<0.06)
[2020-07-08] MEDS: Ketorolac 30 MG/ML VIAL IVP (14:35)
--- NOTE | 2020-07-08 14:48 | DI.RAD_ITS ---
EXAM: XR CHEST 2V PA LATERAL CLINICAL HISTORY: chest pain, r/o acute disease TECHNIQUE: 2D digital imaging was performed. COMPARISON: CR CHEST 2 VIEWS PA,LAT from 07/07/2016 FINDINGS: The heart is not enlarged. The lungs are clear and well expanded. No pleural effusion seen. Mediastin al contours appear intact. IMPRESSION: Normal chest. RADIATION DOSE DELIVERED: Total DLP
--- NOTE | 2020-07-08 15:30 | RT.EKG_ITS ---
APPROVED REPORT Exam: Resting ECG Patient Location: E HR:76 bpm ECG Measurements Heart Rate 76 AXIS MO 201 P 22 QRSd 96 QRS 44 QT 367 T 8 QTc 414 Conclusion Sinus rhythm...normal P axis, V-rate 60- 99 ST elev, probable normal early repol pattern...ST elevation, age<55 No STEMI. I have reviewed and interpreted ECG and agree with software generated interpretation.
[2020-07-08] MEDS: LORazepam 2 MG/ML VIAL 1 MG IVP (16:10)
[2020-07-08] MEDS: FAMOTIDINE 20 MG/50 ML BAG 200 MG IVPB (16:12)
[2020-07-08 16:45] LABS: D-Dimer 163 ng/mlFEU (<500)
[2020-07-08 17:22] LABS: Troponin I < 0.05 ng/mL (<0.06)
--- NOTE | 2020-07-08 17:30 | RT.EKG_ITS ---
APPROVED REPORT Exam: Resting ECG Patient Location: E HR:78 bpm ECG Measurements Heart Rate 78 AXIS MT 195 P 30 QRSd 96 QRS 42 QT 359 T 11 QTc 410 Conclusion Sinus rhythm...normal P axis, V-rate 60- 99 ST elev, probable normal early repol pattern...ST elevation, age<55. No STEMI. I have reviewed and interpreted ECG and agree with software generated interpretation.
== END 2020-07-08 18:10 | disposition home or self-care (01) ==
PROVIDERS: Emergency Provider Physician Assistant; PCP Nurse Practitioner Family
DX: R07.89 Other chest pain (principal); R07.81 Pleurodynia; G89.29 Other chronic pain; E11.9 Type 2 diabetes mellitus without complications; Z79.84 Long term (current) use of oral hypoglycemic drugs; I10 Essential (primary) hypertension
CPT/HCPCS: 36415; 80053; 93005; 96374; 96375; 99285; 71046; 83735; 84484; 85025; 85379; 85610; 85730; 93010; 99284; J1885; J2060

== ENCOUNTER 2020-07-20 02:19 | Outpatient (CLI) | payer OTHER, SELFPAY ==
[2020-07-21 21:47] LABS: COVID-19 RT-PCR Result NEGATIVE (Negative)
== END 2020-07-20 02:39 ==
PROVIDERS: PCP Nurse Practitioner Family; Visit Provider Internal Medicine Cardiovascular Disease
DX: Z11.52 Encounter for screening for COVID-19 (principal); Z01.810 Encounter for preprocedural cardiovascular examination
CPT/HCPCS: U0003

== ENCOUNTER → 2020-07-23 01:02 | Outpatient (CLI) | payer OTHER, SELFPAY ==
--- NOTE | 2020-07-23 14:00 | ETT_ITS ---
APPROVED REPORT Exam: Exercise Treadmill Patient Location: Out-Patient Room/Bed: Stress Nurse: Norah Wills RN, Parveen Lam RN Ordering Provider:JUDY JONES, Contact Number: [phone] BMI: 28.69 Baseline Rhythm: Sinus Rhythm Indications: Chest pain Medical History Medical History: Hypertension, hyperlipidemia, diabetes Cardiac Medications: metformin, losartan, aspirin, simvastatin, glipizide Allergies: NKA Cardiac Risk Factors: Hypertension, hyperlipidemia, family hx Previous Cardiac Procedures: None. Pretest Chest Pain Characteristics: Non-exertional Chest pain / Exercise History: Indeterminate Physical Disabilities: None Lung Sounds: Clear to auscultation Heart Sounds: Regular Stress Test Details Test: Exercise stress testing was performed using a Austyn protocol. Rest Stress HR Resting HR Supine: 90 bpm Max Heart Rate (APMHR): 175 bpm Resting HR Standin bpm Target HR (85% APMHR): 148 bpm Max HR Achieved: 169 bpm % of APMHR: 96 Recovery HR: 95 bpm HR response to stress: Normal HR response to stress BP Resting BP Supine: 150/102 mmHg Resting BP Standin/94 mmHg Max BP: 176/80 mmHg Recovery BP: 146/86 mmHg BP response to stress: Blunted blood pressure response to stress. ECG Resting ECG: Sinus Rhythm Ectopy: None. Stress ECG: Sinus Tachycardia ST Change: No significant ST segment changes noted Arrhythmia: None. Recovery ECG: Sinus Rhythm Recovery ST Change: No significant ST segment changes noted Recovery Arrhythmia: None. Clinical Reason for Termination: Leg pain/Claudication Stress Symptoms: Leg Fatigue Exercise duration: 9 min47 sec Highest Stage Reached: Stage 4: 4.2 mph at 16% grade. Exercise capacity: 11.43 METs Lund Treadmill Score: 9 Rate Pressure Product: [id number] Stress ECG Conclusion 1. Resting electrocardiogram was normal 2. Patient exercised on the Austyn protocol and completed a workload of 11.43 METS, limited by leg fat igue. He achieved 96 percent of predicted heart rate for age. 3. Heart rate and blood pressure response to exercise was normal 4. There was no electrocardiographic evidence of myocardial ischemia 5. No dysrhythmias 6. Lund treadmill score is 9, low risk Lund Treadmill Score is 9 which is Low risk. Stress Test Summary STAGE Time (mins) Speed (mph) Grade (%) HR BP SYMPTOMS METS Supine 90 150/102 Standing 93 142/94 1 3 1.7 10 126 150/92 4.6 2 6 2.5 12 141 158/90 7 3 9 3.4 14 158 164/88 10.2 1 min recovery 140 176/80 3 min recovery 106 164/82 6 min recovery 95 146/86
== END ==
PROVIDERS: PCP Nurse Practitioner Family; Visit Provider Physician Assistant
DX: R07.9 Chest pain, unspecified (principal); I10 Essential (primary) hypertension; E78.5 Hyperlipidemia, unspecified; Z82.49 Family history of ischemic heart disease and other diseases of the circulatory system
CPT/HCPCS: 93017

== ENCOUNTER 2020-09-21 17:02 | Outpatient (REF) | payer OTHER, SELFPAY ==
[2020-09-21 22:19] LABS: Vitamin B12 828 pg/mL (193-986)
[2020-09-21 22:46] LABS: C-Reactive Protein < 0.05 mg/dL (0.0-0.3)
[2020-09-22 16:53] LABS: ESR 3 mm/hr (<or=15)
[2020-09-22 16:56] LABS: Rheumatoid Factor <8.6 IU/mL (<12.0)
[2020-09-23 14:32] LABS: ANA Interpretation Negative (Negative)
== END 2020-09-21 17:03 | disposition home or self-care (01) ==
LOC: NCHCN 17:02
PROVIDERS: PCP Nurse Practitioner Family; Visit Provider Nurse Practitioner Family
DX: E78.5 Hyperlipidemia, unspecified (principal); E11.9 Type 2 diabetes mellitus without complications; R07.9 Chest pain, unspecified; E53.8 Deficiency of other specified B group vitamins; E83.42 Hypomagnesemia; R51.9 Headache, unspecified; F32.9 Major depressive disorder, single episode, unspecified; R03.0 Elevated blood-pressure reading, without diagnosis of hypertension
CPT/HCPCS: 85652; 82607; 86038; 86140; 86431

== ENCOUNTER 2021-11-02 15:32 | Outpatient (REF) | payer BC, SELFPAY ==
[2021-11-02 20:53] LABS: Iron 73 ug/dL (65-175); Total Iron Binding Capacity 265 ug/dL (250-450); Transferrin Sat 28 % (20-55)
[2021-11-02 21:09] LABS: ALT 37 U/L (16-63); AST 21 U/L (15-37); Albumin 4.9 g/dL (3.4-5.0); Alkaline Phosphatase 86 U/L (46-116); Anion Gap 9.3 mmol/L (3-11); BUN 18 mg/dL (7-18); Bilirubin, Total 0.3 mg/dL (0.2-1.0); CO2 26.7 mmol/L (21.0-32.0); Calcium 9.1 mg/dL (8.5-10.1); Chloride 103 mmol/L (98-107); Ferritin 132 ng/mL (26-388); Glucose 140 mg/dL (74-106); Magnesium 1.9 mg/dL (1.8-2.4); Potassium 3.8 mmol/L (3.5-5.1); Sodium 139 mmol/L (136-145); TSH (W/Ref FT4) 1.59 uIU/mL (0.36-3.74); Total Protein 7.7 g/dL (6.4-8.2)
[2021-11-02 21:15] LABS: ESR 3 mm/hr (0-15)
[2021-11-02 21:29] LABS: Creatine Kinase 268 U/L (39-308)
[2021-11-03 05:37] LABS: Vitamin B12 789 pg/mL (193-986)
[2021-11-03 18:02] LABS: Rheumatoid Factor <8.6 IU/mL (<12.0)
[2021-11-04 10:31] LABS: Lyme Ab w Rflx to Lyme Confirm Negative (Negative)
[2021-11-04 15:10] LABS: ANA Interpretation Negative (Negative)
[2021-11-05 22:21] LABS: Anaplasma phagocytophilum Negative (Negative); B. miyamotoi PCR Negative (Negative); Babesia divergens/MO-1 Negative (Negative); Babesia duncani Negative (Negative); Babesia microti Negative (Negative); Ehrlichia chaffeensis Negative (Negative); Ehrlichia ewingii/canis Negative (Negative); Ehrlichia muris eauclairensis Negative (Negative)
== END 2021-11-02 15:33 | disposition home or self-care (01) ==
LOC: NCHCN 15:32
PROVIDERS: PCP Nurse Practitioner Family; Visit Provider Nurse Practitioner Family
DX: E11.9 Type 2 diabetes mellitus without complications (principal); M79.18 Myalgia, other site; M25.50 Pain in unspecified joint; R51.9 Headache, unspecified; G47.33 Obstructive sleep apnea (adult) (pediatric); Z00.00 Encounter for general adult medical examination without abnormal findings
CPT/HCPCS: 80053; 82550; 85652; 87798; 82607; 82728; 83540; 83550; 83735; 84443; 86038; 86140; 86431; 86618

== ENCOUNTER 2022-08-31 09:49 | Outpatient (CLI) | payer BC, SELFPAY ==
--- NOTE | 2022-08-31 09:30 | DI.RAD_ITS ---
Exam(s) XR SHOULDER LT COMPLETE 2+V EXAM: XR SHOULDER LT COMPLETE 2+V CLINICAL HISTORY: shoulder pain. TECHNIQUE: 2D digital imaging was performed of the left shoulder. Two images were obtained. AP and axillary views were obtained. COMPARISON: No exams were available for comparison FINDINGS: BONES: No acute fracture is present. No bony destructive lesion is seen. JOINTS: No dislocation present. Mild degenerative changes are seen at the acromioclavicular joint. T he glenohumeral joint is well maintained. SOFT TISSUE: Normal. IMPRESSION: Mild degenerative changes of the AC joint. DATA REPOSITORY: RADIATION DOSE DELIVERED:
--- NOTE | 2022-08-31 09:30 | DI.RAD_ITS ---
Exam(s) XR SHOULDER RT COMPLETE 2+V EXAM: XR SHOULDER RT COMPLETE 2+V CLINICAL HISTORY: shoulder pain. TECHNIQUE: 2D digital imaging was performed of the right shoulder. Two images were obtained. AP an d axillary views were obtained. COMPARISON: No exams were available for comparison FINDINGS: BONES: No acute fracture is present. No bony destructive lesion is seen. JOINTS: No dislocation present. There are mild degenerative changes of the acromioclavicular joint. The glenohumeral joint is well maintained. SOFT TISSUE: Normal. IMPRESSION: Mild degenerative changes of the right AC joint. DATA REPOSITORY: RADIATION DOSE DELIVERED:
== END 2022-08-31 09:50 | disposition home or self-care (01) ==
LOC: DIORS 09:49
PROVIDERS: PCP Nurse Practitioner Family; Referring Provider Nurse Practitioner Family; Visit Provider Student in an Organized Health Care Education/Training Program
DX: M25.511 Pain in right shoulder (principal); M25.512 Pain in left shoulder; M19.011 Primary osteoarthritis, right shoulder; M19.012 Primary osteoarthritis, left shoulder
CPT/HCPCS: 73030

== ENCOUNTER 2022-09-22 15:01 | Outpatient (REF) | payer BC, SELFPAY ==
[2022-09-22 21:55] LABS: ALT 34 U/L (16-63); AST 15 U/L (15-37); Albumin 4.8 g/dL (3.4-5.0); Alkaline Phosphatase 79 U/L (46-116); Anion Gap 7.9 mmol/L (3-11); BUN 15 mg/dL (7-18); Bilirubin, Total 0.3 mg/dL (0.2-1.0); CO2 29.1 mmol/L (21.0-32.0); CREATININE 0.9 mg/dL (0.70-1.30); Calcium 9.3 mg/dL (8.5-10.1); Chloride 104 mmol/L (98-107); Estimated GFR 106.01 (mL/min/1.73m2); Glucose 179 mg/dL (74-106); Magnesium 1.9 mg/dL (1.8-2.4); Potassium 4.1 mmol/L (3.5-5.1); Sodium 141 mmol/L (136-145); Total Protein 7.5 g/dL (6.4-8.2); Vitamin B12 1242 pg/mL (193-986)
== END 2022-09-22 15:02 | disposition home or self-care (01) ==
LOC: NCHCN 15:01
PROVIDERS: PCP Nurse Practitioner Family; Visit Provider Nurse Practitioner Family
DX: E11.9 Type 2 diabetes mellitus without complications (principal); E83.42 Hypomagnesemia; E53.8 Deficiency of other specified B group vitamins; I10 Essential (primary) hypertension; M79.10 Myalgia, unspecified site; R07.9 Chest pain, unspecified
CPT/HCPCS: 80053; 82607; 83735

== ENCOUNTER 2022-10-04 01:34 | Outpatient (CLI) | payer OTHER, SELFPAY ==
--- NOTE | 2022-10-04 08:15 | DI.MRI_ITS ---
Exam(s) MR UPPER JOINT RT WO EXAM: MR UPPER JOINT RT WO CLINICAL HISTORY: R SHOULDER PAIN,RT ROTATOR CUFF TEAR, M75.101. TECHNIQUE: Multiplanar multisequence MRI was performed. COMPARISON: CR XR SHOULDER RT COMPLETE 2+V from 08/31/2022 FINDINGS: BONES: There is no fracture or contusion pattern. JOINTS: There are mild degenerative changes at the acromioclavicular joint. The glenohumeral joint i s normal. TENDONS: Supraspinatus: Unremarkable. Infraspinatus: There is mild tendinosis of the infraspinatus tendon. Subscapularis: There is a focus of hyperintense signal seen within the subscapularis tendon suspiciou s for an intrasubstance tear. Teres [place]: Unremarkable. Biceps and [place]: Unremarkable. MUSCLES: Unremarkable. GLENOID LABRUM: Unremarkable on this noncontrast examination. SOFT TISSUES: Unremarkable. LIGAMENTS: Unremarkable. OTHER: Subacromial and subdeltoid bursae are unremarkable. IMPRESSION: 1. Focus of hyperintense signal seen in the subscapularis tendon suspicious for an intrasubstance tea r. 2. Tendinosis of the infraspinatus tendon. 3. Degenerative changes seen at the acromioclavicular joint. DATA REPOSITORY:
--- NOTE | 2022-10-04 08:15 | DI.MRI_ITS ---
Exam(s) MR UPPER JOINT LT WO EXAM: MR UPPER JOINT LT WO CLINICAL HISTORY: LEFT SHOULDER PAIN,LT ROTATOR CUFF TEAR, M75.102. TECHNIQUE: Multiplanar multisequence MRI was performed. COMPARISON: CR XR SHOULDER LT COMPLETE 2+V from 08/31/2022 FINDINGS: BONES: There is no fracture or contusion pattern. JOINTS: Mild degenerative changes are seen at the acromioclavicular joint. The glenohumeral joint is normal. TENDONS: Supraspinatus: Unremarkable. Infraspinatus: Unremarkable. Subscapularis: There is hyperintense signal seen within the subscapularis tendon consistent with an i ntrasubstance tear. Teres [place]: Unremarkable. Biceps and [place]: Unremarkable. MUSCLES: Unremarkable. GLENOID LABRUM: Unremarkable on this noncontrast examination. SOFT TISSUES: Unremarkable. LIGAMENTS: Unremarkable. OTHER: There is a small amount of increased signal within the subacromial subdeltoid bursa. IMPRESSION: 1. Intrasubstance subscapularis tendon tear. 2. Degenerative changes of the acromioclavicular joint. DATA REPOSITORY:
== END 2022-10-04 01:54 ==
PROVIDERS: PCP Nurse Practitioner Family; Visit Provider Student in an Organized Health Care Education/Training Program
DX: M25.511 Pain in right shoulder; M75.101 Unspecified rotator cuff tear or rupture of right shoulder, not specified as traumatic; M25.512 Pain in left shoulder; M75.102 Unspecified rotator cuff tear or rupture of left shoulder, not specified as traumatic; M75.81 Other shoulder lesions, right shoulder; M25.811 Other specified joint disorders, right shoulder; M25.812 Other specified joint disorders, left shoulder
CPT/HCPCS: 73221

== ENCOUNTER 2023-02-10 05:59 | Day surgery (SDC) | payer BC, SELFPAY ==
[2023-02-10] VITALS (10 sets, daily range): BP systolic 104–166; BP diastolic 63–103; PULSE 69–87; RESP 14–16; TEMP 36.4–37.1; O2SAT 95–99; BMI 28.5
[2023-02-10] MEDS: Lactated Ringers 1,000 ML 30 ML IV (06:39)
--- NOTE | 2023-02-10 07:09 | W.PM.DSUDISC ---
Date of service: 02/10/23 Time of Service: 11:00 Discharge Plan Disposition Patient Disposition: Home Condition: Stable Discharge Details Attending Provider: Antonio Hamilton Primary Care Provider: Anel Campos Home Meds and New Rx's Prescriptions: New naproxen 250 mg tablet 250 - 500 mg PO BID PRNQty: 40 0RF Rx Instructions: take with a meal oxycodone 5 mg tablet 5 - 10 mg PO Q4H MDD 30 mg PRN (Reason: moderate to severe pain) Qty: 18 0RF Continued ropinirole 2 mg tablet 2 mg PO HS metformin 500 MG tablet 1,000 mg PO BID losartan 25 MG tablet 25 mg PO DAILY aspirin [Aspir-81] 81 MG tablet,delayed release (DR/EC) 81 mg PO DAILY simvastatin 10 MG tablet 10 mg PO HS glipizide 5 mg tablet extended release 24hr 5 mg PO DAILY Patient Comments: TAKE 1 TABLET BY MOUTH ONCE DAILY WITH BREAKFAST cyanocobalamin (vitamin B-12) [Vitamin B-12] 1,000 mcg Tablet 1,000 mcg PO DAILY Discontinued ibuprofen 600 mg tablet 600 mg PO TID Qty: 12 0RF Rx Instructions: take with food Discharge Instructions Additional Instructions: Surgery: Left shoulder arthroscopy with rotator cuff repair (subscapularis), biceps tenodesis, extensive debridement, and subacromial decompression. Activity: For 6 weeks, you should keep your arm at your side in a neutral position at all times except for physical therapy. Do not try to lift or raise your arm using your own muscles. You should use the sling whenever you are out of the house. You may have to adjust the abduction pillow or remove it for comfort. At home it is best to remove the sling and rest the arm on a pillow at your side or support the operative side with your other hand. You may allow the arm to dangle at your side. A physical therapy prescription will be sent electronically to begin in about 3 weeks. Standard protocol. Prescriptions: Resume daily 81 mg aspirin tomorrow Naproxen 250 mg take 1-2 every 12 hours with a meal as needed for moderate pain (do not use at same time as ibuprofen) Oxycodone 5 mg take 1-2 every 4-6 hours as needed for severe pain You may use [id number] Tylenol (acetaminophen) as needed for mild pain. These pain medications may be taken all at once or in different combinations as needed. Also, recommend Colace (docusate) as a stool softener as surgery and pain medicine cause constipation. You may try czie-keu-cbcezrj diphenhydramine (Benadryl) 25-50 mg nightly as a sleep aid Dressings: Remove shoulder bandage after 3 days. Leave the sticky Steri-Strips in place until they fall off or remove them after you shower. Cover the incisions with Band-Aids or leave them open to air. You may shower after 5 days. Follow-up: 10-[address] Hamilton You may take off the leg compression stockings this evening at home. You may also leave them on a few days longer if you have a history of leg swelling or edema. Let us know right away if you develop any redness, drainage, fevers, chest pain, or trouble breathing. Do not drink alcohol or drive for at least 24 hours after anesthesia. Please call the office during business hours with any questions or concerns. Discharge Orders Discharge Orders: Discharge Order (Routine); Ordered 02/10/23 Ordered By: Antonio Hamilton DS: Diagnosis Discharge Diagnosis (1) Rotator cuff tear, left: Status: Acute (2) Bursitis of left shoulder: Status: Acute (3) Tendinitis of long head of biceps brachii of left shoulder: Status: Acute
--- NOTE | 2023-02-10 07:19 | W.PM.OP ---
Date of service: 02/10/23 Time of Service: 07:30 Operative Note Operative Note DATE OF PROCEDURE: 02/10/23 PRE-OP DIAGNOSIS: Left: 1. Rotator cuff tear 2. LHB tendinopathy 3. Bursitis POST-OP DIAGNOSIS: same PROCEDURE: Left: 1. Rotator cuff repair, CPT# 79425. This involved suture?only repair of intrasubstance subscapularis tear 2. Arthroscopic biceps tenodesis, CPT# 23020. This involved arthroscopically suturing and reattaching the long head of the biceps tendon to the proximal humerus at the superior margin of the bicipital groove with a screw at the correct tension. 3. Extensive debridement, CPT# 88658. This involved using arthroscopic hand instruments, power instruments, and radiofrequency instruments to release the long head of the biceps tendon and debride areas of anterior and posterior labral tearing, rotator interval synovitis, articular supraspinatus rotator cuff tearing, and anterior glenoid chondromalacia working within the glenohumeral joint anteriorly, superiorly and posteriorly. 4. Subacromial decompression with partial acromioplasty, CPT# 70957. This involved using arthroscopic power instruments and a radiofrequency wand to complete a bursectomy and smooth the undersurface of the acromion. The licensed loan officer assistant was medically required in order to help assist in techniques above, which require positioning the arm, holding the arthroscope, and manipulating multiple instruments and sutures at the same time. This cannot be done without the help of an experienced licensed loan officer assistant. SURGEON: Antonio Hamilton NETSUITE DEVELOPER: Jacqueline Mosher ANESTHESIA TYPE: General LMA/ETT and Primary Nerve Block Refer to Anesthesia Record ESTIMATED BLOOD LOSS: 10 PATHOLOGY: none sent COMPLICATIONS: None Patient was transported to: PACU Patient's condition: stable Implants: Arthrex: 4.75mm SwiveLocks x 1 Indications: The patient was diagnosed with the above conditions and appropriately indicated for surgical intervention. Please see complete medical record for details. Findings: Exam under anesthesia: Full range of motion, no instability Glenohumeral joint: Moderately significant anterior rotator interval synovitis. Moderately inflammation/injection around the biceps at the groove and extending into the intra-articular segment. No significant SLAP tear. Mild fraying/tearing leading edge of supraspinatus adjacent to the biceps tendon without any disruption articular footprint. Remainder articular rotator cuff intact. Subscapularis with redundancy layers superior and laterally at the lesser tuberosity probably at the site of intrasubstance tearing although on probing both the articular and capsular margins did appear largely intact. Mild about 1 x 1 cm area of anterior glenoid chondromalacia. Mild fraying anterior and posterior labrum. Subacromial space: Moderate bursitis. Mild bursal supraspinatus tearing centrally to medially without any significant structural involvement. Mild anterior lateral acromial bone spur impingement. Procedure Description: In the operating room, general anesthesia was induced. Bilateral shoulders were examined. The patient was positioned in the beachchair position. All bony prominences were well-padded. Preoperative antibiotics were administered. The shoulder was prepped and draped in the usual sterile fashion. The correct patient, procedure, and side of the procedure were all verified prior to incision. Starting through the posterior portal a standard complete diagnostic arthroscopy was performed of the glenohumeral joint including inspection of the long head of the biceps, anterior and superior labrum, subscapularis tendon, supraspinatus and infraspinatus tendons, and axillary recess. The glenoid and humeral head cartilage as well as the posterior labrum were inspected from an anterior viewing portal. Significant findings and interventions noted above and included mechanical shaver debridement very lightly of anterior glenoid mild chondromalacia, mechanical shaver and radiofrequency wand resection and smoothing of frayed anterior and posterior labral tearing, mechanical shaver debridement of a small flap articular leading edge supraspinatus rotator cuff tear to a stable margin, and mechanical shaver and radiofrequency ablator removal of anterior rotator interval synovitis. An all-arthroscopic suprapectoral biceps tenodesis was performed through an anterior portal using a Loop N Tack method with a SutureTape FiberLink cinched around and through the tendon. The biceps was tenotomized from the labrum and fixated with a suture anchor at the superior margin of the bicipital groove. The extra knotless repair suture was then looped around the tendon stump and then shuttled through the knotless anchor mechanism with excellent additional security on the repair. Starting through the posterior portal, the arthroscope was directed into the subacromial space. A lateral 50 yard line lateral portal was created. A combination of power instruments and a radiofrequency ablator were used to debride bursitis anteriorly, posteriorly, and laterally as well as expose and smooth bone spurring prominence on the anterior lateral margin of the undersurface of the acromion. The coracoacromial ligament was partially released. The bursectomy was completed viewing laterally and working from posteriorly and the rotator cuff was thoroughly inspected with findings noted above. The shoulder was drained of arthroscopic fluid. All portal sites were copiously irrigated. These incisions were closed using 3-0 Monocryl in a buried fashion and then covered with Mastisol, Steri-Strips, Xeroform, dry gauze, and ABDs. The dressings were covered and secured with Medipore tape. The operative extremity was placed into a sling for immobilization. The patient awoke from anesthesia without complication and was transferred to the recovery room in a stable condition.
--- NOTE | 2023-02-10 07:29 | W.ANESPRE ---
General Info Date of Service Date Performed: 02/10/23 Height: 5 ft 10 in Weight: 90.1 kg Body Mass Index (BMI): 28.5 Surgical Procedure: Operation Date: 02/10/23 07:40 Proposed Procedure Side Surgeon p Shoulder Arthroscopy w/extensive debridement, biceps tenodesis, subacromial decompression Left Antonio Hamilton MD Actual Procedure Side Surgeon p Shoulder Arthroscopy w/extensive debridement, biceps tenodesis, subacromial decompression Left Antonio Hamilton MD Pre-Op Diagnosis Post-Op Diagnosis (1) Rotator cuff tear, left (2) Bursitis of left shoulder (3) Tendinitis of long head of biceps brachii of left shoulder Meds Allergies and Home Medications Allergies Allergy/AdvReac Type Severity Reaction Status Date / Time No Known Allergies Allergy Verified 02/10/23 06:10 Home Medication Medication Instructions Recorded aspirin 81 mg tablet,delayed 81 mg PO DAILY 07/07/16 release (Aspir-) losartan 25 mg tablet 25 mg PO DAILY 07/07/16 metformin 500 mg tablet 1,000 mg PO BID 07/07/16 simvastatin 10 mg tablet 10 mg PO HS 07/07/16 cyanocobalamin (vitamin B-12) 1,000 mcg PO DAILY 07/08/20 1,000 mcg tablet (Vitamin B-12) glipizide 5 mg tablet, extended 5 mg PO DAILY 07/08/20 release 24 hr ropinirole 2 mg tablet 2 mg PO HS 07/14/22 naproxen 250 mg tablet 250 - 500 mg PO BID PRN #40 tabs 02/10/23 oxycodone 5 mg tablet 5 - 10 mg PO Q4H PRN moderate to 02/10/23 severe pain #18 tabs Current Visit Medications: Current Medications Generic Name Dose Route Start Last Admin Trade Name Freq PRN Reason Stop Dose Admin Ringer's Solution 1,000 mls @ 30 mls/hr 02/10/23 06:00 02/10/23 06:39 IV 02/10/23 16:00 30 mls/hr INFUSION ISAÍAS Administration Cefazolin Sodium/Dextrose 2 gm in 50 mls @ 100 mls/hr 02/10/23 06:00 Ancef Duplex IVPB 02/10/23 23:59 PREOP ISAÍAS IV Miscellaneous Supplies 1 each 02/10/23 06:00 Iv Access IV 02/10/23 23:59 DIRECTED ISAÍAS Oxycodone HCl 0 mg 02/10/23 07:08 Oxycodone 5 Mg Tab PO 03/12/23 07:07 Q3H PRN PRN Pain Sodium Chloride 0 ml 02/10/23 06:00 Normal Saline Flush 10 Ml Syr IV 02/10/23 23:59 PRN PRN Sodium Chloride 0 ml 02/10/23 06:00 Normal Saline 10 Ml Vial IJ 02/10/23 23:59 DIRECTED PRN Sterile Water 0 ml 02/10/23 06:00 Water,Injection,Sterile 10 Ml Vial IJ 02/10/23 23:59 DIRECTED PRN PFSH Active Problems Active Problems: Problem Status Onset Code Diabetes mellitus E11.9 HTN (hypertension) I10 Hypercholesterolemia E78.00 Rotator cuff tear, left M75.102 Rotator cuff tear, right M75.101 Bursitis of left shoulder M75.52 Tendinitis of long head of biceps brachii of left shoulder M75.22 Medical History Medical History RLS (restless legs syndrome) Tobacco Smoking/Tobacco Use Status: Never Alcohol Alcohol Intake: never Substance Use Substance use: Never Substance use type: does not use Vital Signs and Lab Results Vital Signs Most Recent Vital Signs in EMR: Most Recent Vital Signs Temp Pulse Resp BP Pulse Ox 36.7 C 87 16 133/81 99 02/10/23 06:12 02/10/23 06:12 02/10/23 06:12 02/10/23 06:12 02/10/23 06:12 Point of Care Results Point of Care Results: Finger Stick Blood Glucose 177 02/10/23 07:04 Lab Results Blood Type / Crossmatch: No Data to Display Complete Blood Count: No Data to Display Complete Metabolic Panel: No Data to Display Liver Function Panel: No Data to Display Coagulation Panel: No Data to Display Cardiac Panel: No Data to Display Arterial Blood Gas: No Data to Display Venous Blood Gas: No Data to Display Pancreas Panel: No Data to Display Thyroid Panel: No Data to Display Infectious Disease: No Data to Display Blood Cultures: No Data to Display Toxicology Panel: No Data to Display Anesthesia Assessment and Plan Anesthesia History Personal History: No History of Anesthesia Complications Family History: No Family History of Anesthesia Complications Exercise Tolerance Exercise Tolerance: Metabolic Equivalents>4 Pertinent Negatives Pertinent Negatives: No Symptoms of GERD Cardiac & Pulmonary Exam Cardiac Exam: Normal S1/S2 Heart Sounds Pulmonary Exam: Clear Bilateral Breath Sounds Implantable Cardiac Device Does patient have a Pacemaker or an ICD?: No Airway Exam Known Difficult Airway: No Mallampati Class: 2 Mouth Opening: Normal (> 3cm) Thyromental Distance: Greater than 3 cm Neck Range of Motion: Full ROM Neck Circumference: Normal Teeth Condition: Normal Dentition ASA Classification ASA Score: ASA 1 Emergency Case?: No NPO Status NPO Status: NPO Clears >2 hours, Solids >8 hours Anesthesia Plan Resuscitation Status: Full Code Anesthesia Technique: General Anesthesia Airway Planned: Endotracheal Tube Monitors Used: Standard Monitors
[2023-02-10] MEDS: ceFAZolin 2 GM/50 ML BAG IVPB (08:00)
--- NOTE | 2023-02-10 08:44 | W.ANESNERVE ---
Nerve Block Single Injection Procedure Date and Time Date Performed: 02/10/23 Procedure Start: 07:35 Location Where Procedure Performed Procedure Location: Day Surgery Unit Reason Performed: Postoperative Analgesia Requesting Provider: Antonio Hamilton Timeout Performed Timeout Performed: Yes Monitoring Used ECG, Blood Pressure, SpO2, ETCO2 and See EMR for corresponding vital signs Sterility Sterility: Hand Hygiene, Surgical Cap, Surgical Mask, Sterile Gloves, Eye Protection and Chlorhexidine Sedation Given During Procedure Sedation Given (Indicate Dose Given): Versed IV Dose:: 2mg Patient Mental Status Patient Mental Status: Sedate with meaningful communication Nerve Block 1st Nerve Block: Laterality: Left Block Type: Interscalene Ultrasound Image Saved?: Yes Needle / Catheter Used: 100mm SonoPlex II Local Anesthetic Bolus (Indicate Dose Given): Lidocaine used for local infiltration of skin (2%/1cc), Injected in 3-5ml increments after negative blood aspiration, Bupivacaine 0.5% Dose:: 0.5%/10cc (50mg), Exparel Dose:: 1.3%/10cc (133mg) and Bupivacaine 0.5% with Epinephrine (1:200,000) Dose:: 100mcg Additives (Indicate Dose Given): Decadron Dose:: 8mg Ultrasound: Sterile probe cover and gel used Nerve Stimulator: Not Used Paresthesia: None Procedure Tolerated: No Complications and Patient tolerated well Procedure Outcome: Successful Performed By: Dav Stanley
[2023-02-10] MEDS: EPINEPHrine 30 MG/30 ML VIAL (09:19)
--- NOTE | 2023-02-10 11:47 | W.ANESPOSTOP ---
Postoperative Evaluation Date, Time and Location Date Performed: 02/10/23 Time Performed: 11:47 Patient Location: Day Surgery Unit Vital Signs Most Recent Imported Vital Signs: Most Recent Vital Signs Temp Pulse Resp BP Pulse Ox 36.5 C 79 16 123/88 95 02/10/23 11:13 02/10/23 11:13 02/10/23 11:13 02/10/23 11:13 02/10/23 11:13 Pain Score Most Recent Pain Score: Most Recent Pain Score Pain Level 0 02/10/23 11:13 Assessment Mental Status: Awake (Alert & Oriented to Patient Baseline) Airway and Respiratory Function: Patent airway with normal (patient baseline) respiratory exam Cardiovascular Function: Hemodynamically Stable Hydration Status: Adequately Hydrated Nausea & Vomiting: No Nausea or Vomiting Pain: Pt. Denies Any Pain Peripheral Nerve Block: Regional nerve block not resolved at time of post operative discharge
== END 2023-02-10 11:56 | disposition home or self-care (01) ==
PROVIDERS: PCP Nurse Practitioner Family; Visit Provider Student in an Organized Health Care Education/Training Program
PROC: (CPT 29805; principal; 2023-02-10 07:30)
DX: M75.102 Unspecified rotator cuff tear or rupture of left shoulder, not specified as traumatic (principal); M75.22 Bicipital tendinitis, left shoulder; M75.52 Bursitis of left shoulder
CPT/HCPCS: 29827; 29828; 29823; 29826; J0171; J0690; J1100; J1885; J2001; J2250; J2405; J2704

== ENCOUNTER 2023-03-21 11:36 | Outpatient (CLI) | payer BC, SELFPAY ==
--- NOTE | 2023-03-21 11:00 | DI.RAD_ITS ---
Exam(s) XR SHOULDER LT COMPLETE 2+V EXAM: XR SHOULDER LT COMPLETE 2+V CLINICAL HISTORY: LEFT SHOULDER F/U. TECHNIQUE: 2D digital imaging was performed. Two views. COMPARISON: CR XR SHOULDER RT COMPLETE 2+V from 08/31/2022 MR MR UPPER JOINT LT WO from 10/04/2022 FINDINGS: BONES: No acute fracture is present. No bony destructive lesion is seen. JOINTS: No dislocation present. Mild spurring at the AC joint. Minimal spurring at the glenoid. Gl enohumeral joint space is maintained. SOFT TISSUE: Normal. IMPRESSION: Mild degenerative changes. DATA REPOSITORY: RADIATION DOSE DELIVERED:
== END 2023-03-21 11:37 | disposition home or self-care (01) ==
LOC: DIORS 11:37
PROVIDERS: PCP Nurse Practitioner Family; Visit Provider Student in an Organized Health Care Education/Training Program
DX: M75.22 Bicipital tendinitis, left shoulder (principal)
CPT/HCPCS: 73030

== ENCOUNTER → 2023-04-13 03:08 | Outpatient (CLI) | payer BC, SELFPAY ==
--- NOTE | 2023-04-13 09:00 | DI.MRI_ITS ---
Exam(s) MR UPPER JOINT LT WO EXAM: MR UPPER JOINT LT WO CLINICAL HISTORY: L SHOULDER PAIN, ROTATOR CUFF TEAR LT, BURSITIS, M75.102, M75.52, M75.22 TECHNIQUE: Multiplanar multisequence MRI of the shoulder was performed. COMPARISON: MR MR UPPER JOINT LT WO from 10/04/2022 CR XR SHOULDER LT COMPLETE 2+V from 03/21/2023 FINDINGS: Some motion artifact noted MARROW:There is no evidence of fracture, bone contusion, Hill-Sachs deformity, nor ominous osseous le sions. There appears to have been interval biceps tenodesis. There is a fastener device in the anteri or humeral head. ROTATOR CUFF MECHANISM: AC JOINT/ACROMIUM: Mild degenerative changes in the AC joint.. There is no evidence of os acromiale. Supraspinatus: Intact. No evidence of tear nor muscle atrophy. No significant fluid in the subacrom ial-subdeltoid bursa. Infraspinatus: Intact. No evidence of tear nor muscle atrophy. Teres Minor: Intact. No evidence of tear nor muscle atrophy. Subscapularis/anterior cuff: Previously described partial intrasubstance tear in the subscapularis is less evident on the present study BICEPS TENDON: . There is some abnormal signal in thickened tissue in the rotator cuff interval whic h is in the region of the recent biceps tenodesis surgery. . The biceps tendon does not appear torn from the tenodesis site nor displaced from the intertubercul ar groove and there is no prominent fluid in its tendon sheath. LABRUM: There is no abnormal signal in the superior labrum posterior to the previous biceps tendon at tachment site. The posterior labrum is intact. Inferior labrum is intact. Anterior labrum is intact. There is no evidence of paralabral cyst. No evidence of osseous Bankart lesion. However, there is now signal abnormality in the inferior glenohumeral ligament which was not previously evident consistent with partial tearing. There is no intraosseous signal in the glenoid nor within the humeral neck at its attachment sites. GLENOHUMERAL JOINT: No joint effusion nor obvious loose intra-articular bodies. No chondral defects. No osteophytes. No degenerative subarticular cysts. QUADRILATERAL SPACE: No evidence of mass in the region of the axillary nerve and dorsal circumflex hu meral vessels. Visualized triceps muscle at this level appears unremarkable. IMPRESSION: 1. Compared to the prior MRI scan of 10/04/2022 there has been interval surgery. There is a biceps te nodesis now evident at the humeral head level without obvious tear of the biceps at this level nor di splacement of the tendon from the intertubercular groove. There is, however, overlying edematous ante rior capsular tissue in the rotator cuff interval between the supraspinatus and superior aspect of th e subscapularis. Glenohumeral ligament. Also abnormal signal now evident in the inferior glenohumeral ligament consistent with partial tearing. 2. No evidence of tear nor atrophy of the supraspinatus and infraspinatus. Mild signal abnormality in the anterior cuff-subscapularis which is somewhat exaggerated by motion artifact. There is no high-g rade tear of the subscapularis. 3. No evidence of labral tear. DATA REPOSITORY:
== END ==
PROVIDERS: PCP Nurse Practitioner Family; Visit Provider Student in an Organized Health Care Education/Training Program
DX: M75.22 Bicipital tendinitis, left shoulder; M25.512 Pain in left shoulder; Z98.890 Other specified postprocedural states
CPT/HCPCS: 73221

== ENCOUNTER 2023-10-31 14:48 | Outpatient (REF) | payer OTHER, SELFPAY ==
[2023-10-31 20:39] LABS: Anion Gap 9.1 mmol/L (3-11); BUN 20 mg/dL (7-18); CO2 29.9 mmol/L (21.0-32.0); Calcium 9.2 mg/dL (8.5-10.1); Chloride 105 mmol/L (98-107); Estimated GFR 92.84 (mL/min/1.73m2); Glucose 87 mg/dL (74-106); Magnesium 1.8 mg/dL (1.8-2.4); Potassium 4.6 mmol/L (3.5-5.1); Sodium 144 mmol/L (136-145)
[2023-10-31 21:12] LABS: Hemoglobin A1C 8.3 % (<5.7)
[2023-11-01 23:36] LABS: Vitamin B12 1377 pg/mL (211-911)
[2023-11-02 13:21] LABS: Calculated LDL 52 mg/dL (<160); Cholesterol 122 mg/dL (<200); HDL Cholesterol 40 mg/dL (>or=40); Triglyceride 150 mg/dL (<or=150)
== END 2023-10-31 14:49 | disposition home or self-care (01) ==
LOC: NCHCN 14:48
PROVIDERS: PCP Nurse Practitioner Family; Visit Provider Nurse Practitioner Family
DX: E11.9 Type 2 diabetes mellitus without complications (principal); E53.8 Deficiency of other specified B group vitamins; E83.42 Hypomagnesemia
CPT/HCPCS: 80048; 80061; 82607; 83036; 83735

== ENCOUNTER 2023-11-19 18:04 | Emergency (ER) | payer OTHER, SELFPAY ==
[2023-11-19 18:05] VITALS: BP 158/94; PULSE 84; RESP 16; TEMP 36.7; O2SAT 99
--- NOTE | 2023-11-19 18:26 | ED.GENADUL_ITS ---
Discharge Plan Disposition Patient Disposition: Home Condition: Stable Discharge Details Clinical Impression: Cellulitis of right hand Primary Care Provider: Anel Campos ED Provider: Bjorn Chan Home Meds and New Rx's Prescriptions: New sulfamethoxazole-trimethoprim 800-160 mg tablet 1 tab PO BID 10 Days Qty: 20 0RF Continued ropinirole 2 mg tablet 2 mg PO HS pioglitazone 30 mg tablet 30 mg PO DAILY metformin 500 MG tablet 1,000 mg PO BID losartan 25 MG tablet 25 mg PO DAILY aspirin [Aspir-81] 81 MG tablet,delayed release (DR/EC) 81 mg PO DAILY simvastatin 10 MG tablet 10 mg PO HS cyanocobalamin (vitamin B-12) [Vitamin B-12] 1,000 mcg Tablet 1,000 mcg PO DAILY glipizide 5 mg tablet extended release 24hr 10 mg PO BID Patient Comments: TAKE 1 TABLET BY MOUTH ONCE DAILY WITH BREAKFAST Discharge Instructions Instructions: Sulfamethoxazole/Trimethoprim (By mouth), Cellulitis (ED) Additional Instructions: You were seen in the emergency department for the mild cellulitis of your right hand, you did the right thing and popping the small pimple or abscess, keep the wound draining, apply topical antibiotic ointment like bacitracin, clean daily multiple times with soap and water. Please take the prescribed antibiotics sent to [facility] in [place], please use therapeutic dosing of Tylenol (acetamenophen) & Advil (ibuprofen) in an alternating fashion as follows: Take 1000mg of Tylenol every 6 hours without missing doses- that is 4 times per day. Assisted in between the Tylenol dosings, take 400-600mg of Advil also on a 6 hour schedule, that is also 4 times per day. The daily maximum dosing of Tylenol is 4000mg, and the daily maximum dosing of Advil is 2400mg. This is safe to do for weeks. Please note that some common cold medications & prescription pain medications may contain acetamenophen and you need to read OTC drug labels and factor that in to maximum daily dosings. Please return to the emergency department for worsening redness to the right hand, red streaking up the arm, fever, nausea or weakness Referrals: Anel Campos [Primary Care Provider] - Discharge Data Discharge Date/Time-TO BE ENTERED AT DEPARTURE: 11/19/23 18:57 HPI General Date/Time Provider Initiated Documentation: 11/19/23 18:25 . HPI Narrative: 48 year-old male presents to ED today by POV/ambulating with his with a chief complaint of redness and swelling to his R proximal middle finger, mild redness spread to R dorsal hand after popping an apparent pimple there on Monday. Quality described as mild throbbing and redness, not improving with topical ABX and hydrogen peroxide, no radiation to red streaking up the arm, fever, active purulent drainage, numbness/tingling. Severity is described as moderate. Palliating factors include hydrogen peroxide and topical ABX. Provoking factors include nothing specific. Patient not anticoagulated. Related Data Home Medications Medication Instructions Recorded Confirmed aspirin 81 mg tablet,delayed 81 mg PO DAILY 07/07/16 10/11/23 release (Aspir-) losartan 25 mg tablet 25 mg PO DAILY 07/07/16 10/11/23 metformin 500 mg tablet 1,000 mg PO BID 07/07/16 10/11/23 simvastatin 10 mg tablet 10 mg PO HS 07/07/16 10/11/23 cyanocobalamin (vitamin B-12) 1,000 mcg PO DAILY 07/08/20 10/11/23 1,000 mcg tablet (Vitamin B-12) ropinirole 2 mg tablet 2 mg PO HS 07/14/22 10/11/23 glipizide 5 mg tablet, extended 10 mg PO BID 10/11/23 10/11/23 release 24 hr pioglitazone 30 mg tablet 30 mg PO DAILY 10/11/23 10/11/23 sulfamethoxazole 800 1 tab PO BID cellulitis 10 days 11/19/23 mg-trimethoprim 160 mg tablet #20 tabs Previous Rx's Medication Instructions Recorded sulfamethoxazole 800 1 tab PO BID cellulitis 10 days 11/19/23 mg-trimethoprim 160 mg tablet #20 tabs Allergies Allergy/AdvReac Type Severity Reaction Status Date / Time No Known Allergies Allergy Verified 11/19/23 18:10 General Stated Complaint: Cellulitis POLLY: 3 Review of Systems All systems reviewed & are unremarkable except as noted in HPI and below Exam Narrative Exam Narrative: GENERAL APPEARANCE: Well-nourished, non-toxic, awake and alert, atraumatic, no acute distress. SKIN: Warm, pink, dry, popped papular lesion on the dorsal proximal phalanx of the right third finger with mild erythema in the dorsal hand, no lymphadenitis, sensation intact distally, no active purulent drainage, no severe tenderness HEAD: Normocephalic, atraumatic, normal hair distribution for gender/age. EYES: Normal conjunctiva, no exudates on lids/lashes. ENT: Nares patent, no circumoral cyanosis, no facial swelling NECK: Supple, trachea midline, painless cervical ROM. LUNGS/CHEST: Non-labored respirations, normal A/P diameter, symmetrical expansion, no chest wall deformity HEART (CV/PV): Regular rate, R radial pulse 2+, no peripheral edema, no JVD. ABDOMEN: Soft, non-distended, no guarding. MSK: Normal ROM, no swelling/deformity to bilateral UEs or LEs, moving all extremities without weakness, no cyanosis, spine midline without tenderness, normal curvature. NEURO: Mental Status AAOx4 - alert to person, place, time, events No facial droop, no forehead involvement. Motor: No focal weakness - strength 5/5 in bilateral UEs and LEs, proximal and distal, symmetric. Sensory: sensation intact to light touch globally. Gait normal: patient ambulated without ataxia into ED room. PSYCH: euthymic, cooperative, pleasant, appropriate speech Course Vital Signs Vital signs: Vital Signs Temperature 36.7 C 11/19/23 18:05 Pulse 84 11/19/23 18:05 Respiratory Rate 16 11/19/23 18:05 Blood Pressure 158/94 H 11/19/23 18:05 Pulse Oximetry 99 11/19/23 18:05 Temperature 36.7 C 11/19/23 18:05 Temperature Source Skin 11/19/23 18:05 Pulse 84 11/19/23 18:05 Respiratory Rate 16 11/19/23 18:05 Blood Pressure 158/94 H 11/19/23 18:05 Blood Pressure Position Sitting 11/19/23 18:05 Pulse Oximetry 99 11/19/23 18:05 Oxygen Delivery Method Room Air 11/19/23 18:05 Oxygen Flow Rate 0 11/19/23 18:05 Pain Level 10 11/19/23 18:05 Medical Decision Making This dictation utilizes [id number] dictation software and may contain unedited grammatical errors. 48 y/o M presents to ED today with a chief complaint of redness to R hand after popping a pimple on his R proximal 3rd finger on Monday. Denies fever, denies active drainage, no red streaking up the arm, no sensory deficits. Patients' medical history: Hypertension. Family and social history: Noncontributory. Pertinent exam findings / vital signs include SKIN: Warm, pink, dry, popped papular lesion on the dorsal proximal phalanx of the right third finger with mild erythema in the dorsal hand, no lymphadenitis, sensation intact distally, no active purulent drainage, no severe tenderness. Differential / pathologies of concern include cellulitis, drained small abscess, unlikely systemic infection. Diagnostic studies of: -None. Interventions of: -Outpatient prescription for Bactrim ED Course/Assessment/Plan: 48-year-old male presents to the emergency department after popping a pimple in the proximal phalanx dorsal aspect of his right third finger on Monday, now having mild redness to the dorsal hand, no lymphadenitis spreading up the arm and no fevers or other signs of systemic infection. I counseled him that this is likely a drained abscess and we will cover for MRSA with Bactrim. Counseled on using bacitracin and performing hot compresses to keep the wound draining. Strict return criteria for any signs of fever, red streaking up the arm, weakness, tachycardia, nausea or vomiting. Findings not consistent with sepsis, current drainable abscess. Disposition of cellulitis of right hand. Patient verbalized understanding of the plan and return to ED criteria and engaged in shared decision making. Medical Records Medical records reviewed: Yes I reviewed the patient's medical records. Quality:SDOH Health Related Social Needs: No Data to Display PFSH All Active Problems (Updated 11/19/23 @ 18:28 by NICO Elizabeth) Cellulitis of right hand (Acute) Adhesive capsulitis of left shoulder (Acute) Diabetes mellitus (Chronic) HTN (hypertension) (Chronic) Hypercholesterolemia (Chronic) Rotator cuff tear, left (Acute) Rotator cuff tear, right (Acute) Bursitis of left shoulder (Acute) Tendinitis of long head of biceps brachii of left shoulder (Acute) Medical History (Updated 11/19/23 @ 18:28 by NICO Elizabeth) RLS (restless legs syndrome) Social History Smoking/Tobacco Use Status: Never Smoking risk assessment performed?: Yes Alcohol Intake: never Drug use: Never Substance use type: does not use Housing: house Current gender identity: male Do you feel safe at home: Yes Do you feel safe in your relationship?: Yes
[2023-11-19] MEDS: Sulfameth/Trimeth DS TAB 1 TAB PO (18:55)
== END 2023-11-19 18:57 | disposition home or self-care (01) ==
PROVIDERS: Emergency Provider Physician Assistant; PCP Nurse Practitioner Family
DX: L03.113 Cellulitis of right upper limb (principal); R22.31 Localized swelling, mass and lump, right upper limb; M79.641 Pain in right hand; E11.628 Type 2 diabetes mellitus with other skin complications
CPT/HCPCS: 99283

== ENCOUNTER 2024-09-18 20:00 | Emergency (ER) | payer SELFPAY ==
[2024-09-18 20:04] VITALS: BP 166/93; PULSE 78; RESP 15; TEMP 36.5; O2SAT 95
--- NOTE | 2024-09-18 21:03 | DI.RAD_ITS ---
Exam(s) XR THUMB LT EXAM: XR THUMB LT EXAM DATE/TIME: CLINICAL HISTORY: ?foreign body. TECHNIQUE: 2D digital imaging was performed of the left finger. Three views were obtained. PA/AP, oblique, and lateral views were obtained. COMPARISON: None. FINDINGS: BONES: No acute fracture is present. No bony destructive lesion is seen. There is a well corticated o sseous density at the dorsal aspect of the head of the proximal phalanx of the thumb which appears ch ronic. JOINTS: No dislocation is present. SOFT TISSUE: The soft tissue calcifications adjacent to the 2nd metacarpal bone are unchanged. No ra diopaque foreign bodies are seen in the soft tissues. No soft tissue gas is present. IMPRESSION: No evidence of acute fracture or dislocation. No foreign body. DATA REPOSITORY: RADIATION DOSE DELIVERED:
[2024-09-18 21:15] VITALS: BP 156/87; PULSE 84; RESP 18; TEMP 36.7; O2SAT 98
--- NOTE | 2024-09-18 21:23 | ED.GENADUL_ITS ---
Discharge Plan Disposition Patient Disposition: Home Condition: Stable Discharge Details Clinical Impression: Puncture wound of left thumb Primary Care Provider: Anel Campos ED Provider: Dav Penaloza Home Meds and New Rx's Prescriptions: New amoxicillin 875 mg tablet 875 mg PO BID 7 Days Qty: 14 0RF Continued ropinirole 2 mg tablet 2 mg PO HS pioglitazone [Actos] 45 mg tablet 45 mg PO DAILY metformin 500 MG tablet 1,000 mg PO BID losartan 25 MG tablet 25 mg PO DAILY aspirin [Aspir-81] 81 MG tablet,delayed release (DR/EC) 81 mg PO DAILY simvastatin 10 MG tablet 10 mg PO HS cyanocobalamin (vitamin B-12) [Vitamin B-12] 1,000 mcg Tablet 1,000 mcg PO DAILY glipizide 5 mg tablet extended release 24hr 10 mg PO BID Patient Comments: TAKE 1 TABLET BY MOUTH ONCE DAILY WITH BREAKFAST Discharge Instructions Additional Instructions: Follow-up with your primary care provider or express care if not improving. You can ice your thumb and keep it elevated to help with the swelling. If you feel more ill, have severe worsening pain or high fevers return to the emergency department for reevaluation HPI General Mode of arrival: ambulatory . Date/Time Provider Initiated Documentation: 09/18/24 20:11 . Limitations to Documentation: no limitations . Information obtained by: patient . History of Present Illness 49 year old M presents to the emergency department with the chief complaint of left thumb puncture wound, described as mild, and is localized to the left and upper extremity. Patient started experiencing this day(s) (1) and it has been constant. No relieving factors improve symptom(s), No exacerbating factors reported . Patient notes no other symptoms.. Related Data Home Medications ?Medication ?Instructions ?Recorded ?Confirmed aspirin 81 mg tablet,delayed 81 mg PO DAILY 07/07/16 09/18/24 release (Aspir-) losartan 25 mg tablet 25 mg PO DAILY 07/07/16 09/18/24 metformin 500 mg tablet 1,000 mg PO BID 07/07/16 09/18/24 simvastatin 10 mg tablet 10 mg PO HS 07/07/16 09/18/24 cyanocobalamin (vitamin B-12) 1,000 mcg PO DAILY 07/08/20 09/18/24 1,000 mcg tablet (Vitamin B-12) ropinirole 2 mg tablet 2 mg PO HS 07/14/22 09/18/24 glipizide 5 mg tablet, extended 10 mg PO BID 10/11/23 09/18/24 release 24 hr pioglitazone 45 mg tablet (Actos) 45 mg PO DAILY 02/22/24 09/18/24 amoxicillin 875 mg tablet 875 mg PO BID 7 days #14 tabs 09/18/24 Previous Rx's ?Medication ?Instructions ?Recorded amoxicillin 875 mg tablet 875 mg PO BID 7 days #14 tabs 09/18/24 Allergies Allergy/AdvReac Type Severity Reaction Status Date / Time No Known Allergies Allergy Verified 09/18/24 20:06 General Stated Complaint: RashLesion POLLY: 4 Review of Systems All systems reviewed & are unremarkable except as noted in HPI and below Constitutional Constitutional: Denies chills, Denies fever(s) and Denies weakness Cardiovascular Cardiovascular: Denies chest pain and Denies dyspnea Respiratory Respiratory: Denies cough and Denies dyspnea Gastrointestinal Gastrointestinal: Denies abdominal pain, Denies nausea and Denies vomiting Neurologic Neurologic: Denies weakness Exam Const General: no acute distress Orientation: alert [facility] Head: normal to inspection Ears: external ears normal General nose exam: external nose normal Mouth: moist mucous membranes Eyes General: appearance normal, both eyes and all related structures Neck Neck: normal visual inspection Resp Effort & Inspection: normal respiratory effort and able to speak in complete sentences Cardio Rate: regular rate Skin General skin exam: no rashes or lesions noted Neuro General: patient alert and patient oriented x3 Extrem General: full ROM and capillary refill normal Psych Mental Status: mental status grossly normal Course Vital Signs Vital signs: Vital Signs Temperature 36.5 C 09/18/24 20:04 Pulse 78 09/18/24 20:04 Respiratory Rate 15 09/18/24 20:04 Blood Pressure 166/93 H 09/18/24 20:04 Pulse Oximetry 95 09/18/24 20:04 Temperature 36.7 C 09/18/24 21:15 Temperature Source Oral 09/18/24 21:15 Pulse 84 09/18/24 21:15 Respiratory Rate 18 09/18/24 21:15 Blood Pressure 156/87 H 09/18/24 21:15 Blood Pressure Position Sitting 09/18/24 20:04 Pulse Oximetry 98 09/18/24 21:15 Oxygen Delivery Method Room Air 09/18/24 21:15 Oxygen Flow Rate 0 09/18/24 21:15 Pain Level 10 09/18/24 21:15 Comment RN notified 09/18/24 21:15 Medical Decision Making 49-year-old male with a history of diabetes and hypertension, last tetanus shot was in 2023, comes in with chief complaint of his left distal thumb being swollen. He says that yesterday at work he had a piece of metal lodged in his thumb and he pulled it out. Says he had increased swelling and discomfort since then. Denies any severe pain, no high fevers. His distal left thumb is mildly swollen without significant erythema. He has a puncture wound on the finger pad of the left thumb. He has full range of motion of the finger with intact sensation. He has no swelling or tenderness over the flexor tendon and again has full range of motion of his fingers I do not flexor tenosynovitis. Had x- rays obtained prior to my exam showed no visible foreign body or fractures. I will place him on Augmentin, advised to follow-up with his PCP or express care if is not improving in a few days and return precautions given Quality:SDOH Health Related Social Needs: No Data to Display PFSH All Active Problems (Updated 09/18/24 @ 21:26 by Dav Penaloza MD) Puncture wound of left thumb (Acute) Adhesive capsulitis of left shoulder (Acute) Diabetes mellitus (Chronic) HTN (hypertension) (Chronic) Hypercholesterolemia (Chronic) Rotator cuff tear, left (Acute) Rotator cuff tear, right (Acute) Bursitis of left shoulder (Acute) Tendinitis of long head of biceps brachii of left shoulder (Acute) Medical History (Updated 09/18/24 @ 21:26 by Dav Penaloza MD) RLS (restless legs syndrome) Social History Smoking/Tobacco Use Status: Never Smoking risk assessment performed?: Yes Alcohol Intake: never Drug use: Never Substance use type: does not use Housing: house Current gender identity: male Do you feel safe at home: Yes Do you feel safe in your relationship?: Yes
[2024-09-18] MEDS: Amoxicillin 875/Clav. 125 TAB PO (21:30)
--- NOTE | 2024-09-18 21:51 | DI.VRAD_ITS ---
PROCEDURE INFORMATION: Exam: XR Left Finger(s) Exam date and time: 09/18/2024 8:59 PM Age: 49 years old Clinical indication: Pain; Finger(s) and other: ? Foreign body in left thumb TECHNIQUE: Imaging protocol: Radiologic exam of the left fingers. Views: Minimum 2 views. COMPARISON: MR UPPER JOINT LT WO 04/13/2023 2:53 PM FINDINGS: Bones/joints: No fracture or dislocation. Soft tissues: Punctate radiopaque foci between the soft tissues of the 1st and 2nd metacarpals may represent a foreign body. Bone attenuating foci at the base of the distal bone of the 1st digit may represent a ossicle over foreign body. IMPRESSION: Punctate radiopaque foci between the soft tissues of the 1st and 2nd metacarpals may represent a foreign body. Bone attenuating foci at the base of the distal bone of the 1st digit may represent a ossicle over foreign body. Dictated and Authenticated by: Rose Marie Olson MD. Orderin Tremaine Demarco MD
[2024-09-19 02:17] VITALS: BP 156/87; PULSE 84; RESP 18; TEMP 36.7; O2SAT 98
== END 2024-09-18 21:31 | disposition home or self-care (01) ==
PROVIDERS: Emergency Provider Emergency Medicine; PCP Nurse Practitioner Family
DX: S61.032A Puncture wound without foreign body of left thumb without damage to nail, initial encounter (principal); X58.XXXA Exposure to other specified factors, initial encounter; Y99.0 Civilian activity done for income or pay
CPT/HCPCS: 99283; 73140